=== PATIENT | female | born 1990 | race African-American/Black ===

== ENCOUNTER 2021-12-25 00:40 | Emergency (ER) | payer SELFPAY ==
[~2021-12-25] VITALS: Ht 180.3 cm; Wt 182.8 kg
[2021-12-25 01:00] VITALS: BP_SYST 165
[2021-12-25 02:12] LABS: BASOPHILS # (AUTO) 0.1 K/uL (0.0-0.2); BASOPHILS % (AUTO) 0.9 % (0.0-2.0); EOSINOPHILS # (AUTO) 0.2 K/uL (0.0-0.4); EOSINOPHILS % (AUTO) 2.2 % (0.0-4.0); HEMATOCRIT 25.9 % (36-48); HEMOGLOBIN 7.7 g/dL (12.0-16.0); LYMPHOCYTES # (AUTO) 1.8 K/uL (1.0-5.5); LYMPHOCYTES % (AUTO) 22.4 % (20.5-51.5); MEAN CORPUSCULAR HEMOGLOBIN 19 pg (27-31); MEAN CORPUSCULAR HGB CONC 30 % (32-36); MEAN CORPUSCULAR VOLUME 64 fL (79.0-98.0); MONOCYTES # (AUTO) 0.5 K/uL (0.0-1.0); NEUTROPHILS # (AUTO) 5.5 K/uL (1.8-7.7); NEUTROPHILS % (AUTO) 68.5 % (40.0-70.0); PLATELET COUNT (AUTO) 513 K/uL (130-430); RED BLOOD CELL COUNT(AUTO) 4.05 MIL/uL (4.2-6.2); RED CELL DISTRIBUTION WIDTH 19.9 % (9.0-15.0)
[2021-12-25 02:28] LABS: CALCIUM 8.9 mg/dL (8.4-11.0); CREATININE 0.72 mg/dL (0.55-1.30); POTASSIUM 3.7 mmol/L (3.5-5.1)
[2021-12-25 02:39] LABS: ALBUMIN 2.9 g/dL (3.4-4.8); TOTAL BILIRUBIN 0.2 mg/dL (0.0-1.0)
[2021-12-25] MEDS ORDERED: SULF1TAB48 PO (03:09)
[2021-12-25] MEDS ORDERED: FERR-69 PO (03:09)
[2021-12-25 03:15] VITALS: BP_SYST 126
== END 2021-12-25 03:23 | disposition home or self-care (01) ==
LOC: SED 00:40
DX: R22.1 Localized swelling, mass and lump, neck (principal); R51.9 Headache, unspecified; M79.621 Pain in right upper arm; M79.622 Pain in left upper arm; D64.9 Anemia, unspecified
CPT/HCPCS: 36415; 76536-TC; 80053; 84702; 85025; 93971; 99284